=== PATIENT | female | born 1990 | race Caucasian/White ===

== ENCOUNTER → 2018-04-11 | Outpatient (CLI) | payer OTHER | LOC: FIMAGING 07:35 | PROVIDERS: ATTEND Obstetrics & Gynecology | DX: O36.5920 Maternal care for other known or suspected poor fetal growth, second trimester, not applicable or unspecified (principal); Z3A.28 28 weeks gestation of pregnancy ==

== ENCOUNTER 2018-07-10 02:12 | Inpatient (IN) | payer OTHER ==
[2018-07-10] MEDS ORDERED: LIDOCAINE 1% 300 MG/30 ML SDV SC PRN (03:35)
[2018-07-10] MEDS ORDERED: OXYTOCIN/RINGERS LACTATE 1,000 ML IV PRN (03:35)
[2018-07-10] MEDS ORDERED: IBUPROFEN 600 MG TAB PO PRN (03:35)
[2018-07-10] MEDS ORDERED: MISOPROSTOL 200 MCG TAB PR PRN (03:35)
[2018-07-10] MEDS ORDERED: LR 1,000 ML IV PRN (03:35)
[2018-07-10] MEDS ORDERED: OLIVE OIL 118 ML BTL MISC PRN (03:35)
[2018-07-10 04:05] LABS: PLATELET COUNT 145 10^3/uL (150-400)
[2018-07-10] MEDS ORDERED: LR 500 ML IV PRN (06:23)
[2018-07-10] MEDS ORDERED: OXYTOCIN/RINGERS LACTATE 500 ML IV SCH (06:30)
--- NOTE | 2018-07-10 06:49 | GHP ---
[f rep st] PREOP HISTORY AND PHYSICAL DATE OF ADMISSION: 07/10/2018 ADMITTING DIAGNOSIS: Intrauterine at 40-6/7 weeks gestation with spontaneous rupture of me mbranes and prodromal labor. HISTORY OF PRESENT ILLNESS: This is a 28-year-old, G1, P0, who is 40-6/7 weeks gestation with a last menstrual period of 09/27/2017, EDC of 07/04/2018, confirmed by a 16-week ultrasound. She has had g ood care at [facility] since 9 weeks gestation. Her risk factors include anemia, varicella nonimmune. She was size less than dates at her 20-week ultrasound, but good growt h in her 3rd trimester and spontaneous rupture of the membranes for 24 hours. The patient reports fe eling leakage of fluid approximately 6 a.m. on the , having irregular contractions with minimal a todd of leakage with contractions that increased in intensity in the evening. She was feeling cont ractions every 2 to 3 minutes, however, they were 40 seconds long and not as intense. She was unsure if she had actually ruptured or not. When she presented to labor and delivery, she had a positive A mniSure, irregular contractions every 3 to 5 minutes and her cervix on exam was 1 cm, 50%. She will be admitted for augmentation of labor and active labor management. PAST OBSTETRICAL HISTORY: This is her first . PAST GYNECOLOGICAL HISTORY: She had menarche at age 13, interval every 20 to 35 days, irregular up t o 45 days. Sure of menstrual period of September 27, 2017. She does have an arcuate shaped uterus determ ined on ultrasound. No other [employer] abnormalities. She has no medical problems. SURGICAL HISTORY: Was a right wrist surgery for a ganglion cyst. ALLERGIES: No known drug allergies. MEDICATIONS: Only medications include vitamins, DHA, and iron. LABS: TSH is normal at 1.40. Rubella immune. HIV negative. Hepatitis negative. Gonorrhea and chla mydia negative. Parvovirus immune. Toxo nonimmune. Varicella nonimmune. RPR nonreactive and GBS w as negative. Her blood type is A positive and she is antibody negative. SOCIAL HISTORY: She is . She lives with her in [place]. They are both engineers. S he denies tobacco, alcohol, or drug use. SIGNIFICANT FAMILY HISTORY: Her sister has aplastic anemia and had a bone marrow transplant and chem otherapy at age 19. Mom has thyroid disease. Sister has migraines and also anxiety and depression. Maternal grandmother had Alzheimer disease. Maternal grandfather had prostate cancer. Maternal gra ndmother had lung cancer. PHYSICAL EXAMINATION: GENERAL: Currently she is afebrile. VITAL SIGNS: Stable. HEART TONES : 130s reactive. Moderate variability category 1. She is aramis irregularly. CERVICAL: Exam on admission was 1 cm. She had a positive AmniSure. ASSESSMENT AND PLAN: A 28-year-old, 1, para 0, at 40-6/7 weeks gestation. Will be admitted for spontaneous rupture of membranes and she will be reassessed and labor will be augmented. s tatus is reassuring. /[id number]/MODL
[2018-07-10] MEDS ORDERED: TERBUTALINE SULFATE 1 MG/ML VIAL ONE (07:51)
[2018-07-10] MEDS ORDERED: CITRIC ACID/SODIUM CITRATE 30 ML UDCUP ONE (08:24)
[2018-07-10] MEDS ORDERED: DOCUSATE SODIUM 100 MG CAP PO PRN (14:55)
[2018-07-10] MEDS ORDERED: ACETAMINOPHEN 325 MG TAB PO PRN (14:55)
--- NOTE | 2018-07-10 15:00 | OBDEL ---
Info Type: Vaginal Presentation at Delivery: Vertex L&D Analgesia/Anesthesia Type: None GBS+: No Intrapartum Medications: Generic Name Dose Route Start Last Admin Trade Name Freq PRN Reason Stop Dose Admin Lactated Ringer's 1,000 mls @ 0 mls/hr 07/10/18 03:35 07/10/18 07:37 Lr IV 07/11/18 03:34 1,000 mls PRN PRN Administration SEE PROTOCOL CONDITIONS Protocol Per Protocol Oxytocin/Lactated Ringer's 500 mls @ 0 mls/hr 07/10/18 06:30 07/10/18 07:37 Pitocin 30 Units/Lr (Premix) IV 01/06/19 06:29 500 mls CONT PHUC Administration Protocol Per Protocol - Care Provider Hospital Plan Administrator/QUEEN'S COUNSEL: Heidi Cook Indications for Delivery: SROM (augmented) Vaginal Delivery - Delivery Provider Delivery Physician/CNM: Jasmin Bolden - Labor and Delivery Onset of Contractions Date: 07/10/18 Onset of Contractions Time: 11:00 Onset of Contractions Type: Augmented (pitocin) Rupture of Membranes Date: 07/09/18 Rupture of Membranes Time: 06:00 Rupture of Membranes Type: Spontaneous Amniotic Fluid Color: Clear Dilation Complete Date: 07/10/18 Dilation Complete Time: 13:30 Placenta Delivery Date: 07/10/18 Placenta Delivery Time: 14:13 Total Hours of Labor: 3 Laceration: 2nd Degree, Other (Specify) (right labial laceration) Repair: 3-0, Vicryl Cord Gases: Cord Gases Cord Blood PCO2 TNP 07/10/18 13:48 Cord Base Excess TNP 07/10/18 13:48 Cord ABG pH TNP 07/10/18 13:48 Cord VBG pH 7.23 (7.20-7.42) 07/10/18 13:48 Operative Report - Delivery Cord Gases: Cord Gases Cord Blood PCO2 TNP 07/10/18 13:48 Cord Base Excess TNP 07/10/18 13:48 Cord ABG pH TNP 07/10/18 13:48 Cord VBG pH 7.23 (7.20-7.42) 07/10/18 13:48 Data DOUG: 07/04/18 Gestational Age: 40 week(s) and 6 day(s) [facility] Delivery Date: 07/10/18 Delivery Time: 13:48 Sex of : Male Score (1 Min): 3 Score (5 Min): 7 (to NICU for transition) ICD10 Worksheet Patient Problems: Problems Problem Status Onset (normal spontaneous vaginal delivery) Acute - ICD10 Problem Qualifiers (1) (normal spontaneous vaginal delivery)
[2018-07-10] MEDS: IBUPROFEN 600 MG TAB PO PRN (21:02)
[2018-07-11] MEDS: IBUPROFEN 600 MG TAB PO PRN ×2 (05:08→17:56)
[2018-07-11] MEDS: EPSOM SALT 454 GM TP PRN (17:57)
--- NOTE | 2018-07-11 21:13 | OBPP ---
Progress Note Assessment/Plan: Assessment: PPD1 s/p Plan: routine care 07/11/18 21:10 Subjective/ Course: 07/11/18 21:11 Pt doing great. pumping and getting colostrum and baby trying to latch. Bld is really decreased. urinating fine - jung a bit but ok with periwash bottle. amb and holly reg diet. Objective: 07/10/18 03:57 Patient ABO/Rh A POSITIVE 07/10/18 03:57 Temp Pulse Resp BP Pulse Ox 36.7 C 97 16 113/72 96 07/11/18 10:20 07/11/18 10:20 07/11/18 10:20 07/11/18 10:20 07/11/18 10:20 Uterine Position/Fundal Height: Umbilicus -2 Uterine Tone: Firm Physical Exam - Physical Exam Abdomen: non-tender, soft, other (FF at umb -2, normal lochia) Extremities: non-tender, pedal edema (minimal) Skin: normal color, warm/dry Neuro/Psych: alert, normal mood/affect
[2018-07-12 08:48] VITALS: BP 114/70
--- NOTE | 2018-07-12 13:14 | OBPP ---
Progress Note Assessment/Plan: Assessment:28 G1 PPD #2 s/p - doing great Plan: Dc to home/ boarding status. Std pp instructions reviewed, including ssx pp depression. Laura Shaw MD, FACOG, [facility] 07/12/18 13:08 Subjective/ Course: 07/11/18 21:11 Pt doing great. pumping and getting colostrum and baby trying to latch. Bld is really decreased. urinating fine - jung a bit but ok with periwash bottle. amb and holly reg diet. 07/12/18 13:10 Doing great. Pumping, ambulating, voiding, and doing well. Lochia minimal. Holly reg diet. Mood good. No hx of personal anxiety or depression. Objective: 07/10/18 03:57 Patient ABO/Rh A POSITIVE 07/10/18 03:57 Temp Pulse Resp BP Pulse Ox 36.9 C 80 15 114/70 96 07/12/18 08:00 07/12/18 08:00 07/12/18 08:00 07/12/18 08:00 07/12/18 08:00 gen - pleasant, NAD, pumping and eating CV - RRR chest - CTAB abd - soft, NT, + BS, fundus firm at u-2 ext - 1 + pitting edema BLE, no calf tenderness Uterine Position/Fundal Height: Umbilicus -3 Uterine Tone: Firm
--- NOTE | 2018-07-12 13:18 | OBGCSDC ---
General Delivery Information - General Info : 1 Para: 1 Abortions: 0 Type: Vaginal L&D Analgesia/Anesthesia Type: None Admission Date: 07/10/18 Labs: Patient ABO/Rh A POSITIVE 07/10/18 03:57 Hct 38.3 % (38.0-47.0) 07/10/18 03:57 - Hospital Course : 07/11/18 21:11 Pt doing great. pumping and getting colostrum and baby trying to latch. Bld is really decreased. urinating fine - jung a bit but ok with periwash bottle. amb and holly reg diet. 07/12/18 13:10 Doing great. Pumping, ambulating, voiding, and doing well. Lochia minimal. Holly reg diet. Mood good. No hx of personal anxiety or depression. Vaginal - Delivery Provider Delivery Physician/CNM: Jasmin Bolden - Diagnosis Labor: Augmented (pitocin) Rupture of Membranes Type: Spontaneous Amniotic Fluid Color: Clear Laceration: 2nd Degree, Other (Specify) (right labial laceration) Repair: 3-0, Vicryl Data DOUG: 07/04/18 Gestational Age: 41 week(s) and 1 day(s) Sal[facility] Delivery Date: 07/10/18 Delivery Time: 13:48 Sex of Infant: Male Weight (gm): 0 g Score (1 Min): 3 Score (5 Min): 7 Discharge Information - Discharge Information Condition: Good Instruction/Follow Up: See Instruction Sheet (3 weeks - [facility], 6 wk - [facility])
[2018-07-12] MEDS: EPSOM SALT 454 GM TP PRN (17:24)
== END 2018-07-12 19:20 | disposition home or self-care (01) | DRG 807 ==
LOC: FLD 02:12 → OBSVTOIN 03:36 → FOB 15:40
PROVIDERS: ADMIT Obstetrics & Gynecology; ATTEND Obstetrics & Gynecology
DX: O70.1 Second degree perineal laceration during delivery (principal); Z37.0 Single live birth; Z3A.41 41 weeks gestation of pregnancy
CPT/HCPCS: J2590; J3105